=== PATIENT | male | born 1970 | race Caucasian/White ===

== ENCOUNTER 2022-03-12 15:00 | Outpatient (RCR) | payer OTHER, SELFPAY ==
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
--- NOTE | 2022-03-12 17:18 | PTOPEVAL1 ---
Assessment and note entered by Shanthi Bland, PT Evaluation Information Assessment Status Re-evaluation Reported Pain Level Pain Score 0: Self Report Additional Pain Score Comments Pt reports R knee pain currently 0/10, 2/10 with walking and cont to have severe pain with deep bending milan with weight bearing R hip is 0/10 at rest, 2/10 with walking, and at worst is a 5/10 Reports R hip flexor still bothersome, the side of his right hip where they put the screws in feels bruised . Reports his back was painful milan w/ walking long periods, but has seen a Chiropractor 2x and is much better already. Is going to see provider after therapy today. Assessment PT Clinical Summary Pt presents for re-evaluation of right hip/knee pain Today demo's overall improvement in ambulation, mobility, reports of pain, flexibility, and strength. Continues to demo multiple areas of tight musculature, decreased mobility R hip joint, decreased strength R hip, abnormal pelvic alignment, and abnormal gait. Pt would benefit from continuing therapy with focus on pelvic alignment, muscle/soft tissue health, strengthening, and gait training in order to return to his prior level of function Plan of Care Interventions Electrical Stimulation,Gait Training,Hot Pack/Cold Pack,Manual Therapy,Neuro Re-education, Therapeutic Activities,Therapeutic Exercise,Self- Care/Home Management,Ultrasound Other Interventions Taping, possibly heel lift orthotic PT Services Indicated Yes These treatments will address the objective and functional deficits as defined above. The patient will be advanced safely and appropriately in order for the patient to progress towards his/her prior level of function. Additional exercises will be introduced and as well as a comprehensive home exercise program upon discharge, if needed, ?to ensure carryover of functional gains achieved in the clinic. This treatment plan has been reviewed and agreement upon by the patient.
== END 2022-05-09 23:59 | disposition home or self-care (01) ==
LOC: ANHHIPT 15:00
DX: R26.9 Unspecified abnormalities of gait and mobility (principal); V89.2XXA Person injured in unspecified motor-vehicle accident, traffic, initial encounter
CPT/HCPCS: 97110; 97112; 97116; 97140; 97161; 97165; 97530; 99199